=== PATIENT | female | born 1940 | race Caucasian/White ===

== ENCOUNTER → 2016-08-26 | Outpatient (CLI) | payer MEDICARE, OTHER ==
[2015-08-19 16:19] VITALS: BP 148/79
[~2016-08-26] MED LIST: ATOR10TA60 PO; CALC500T27 PO; CYAN10005 PO; DONE10TA7 PO; FLUO40CR9 TP; IBUP100O7 PO; METF500T4 PO; VIT1CAPS12 PO
[2016-08-26 09:12] LABS: CALCIUM 8.7 mg/dL (8.5-10.1); CREATININE 0.8 mg/dL (0.6-1.0); POTASSIUM 4.4 mmol/L (3.5-5.1)
[2016-08-26 09:26] LABS: GFR 69.4
[2016-08-26 22:08] LABS: HEMOGLOBIN A1C 5.7 % (4.8-5.6)
== END | disposition home or self-care (01) ==
LOC: SPEC 08:41
PROVIDERS: ATTEND Specialist
DX: Z00.01 Encounter for general adult medical examination with abnormal findings (principal); Z13.1 Encounter for screening for diabetes mellitus; Z13.6 Encounter for screening for cardiovascular disorders; E11.9 Type 2 diabetes mellitus without complications
CPT/HCPCS: 36415; 80048; 80061; 83036

== ENCOUNTER → 2016-08-26 | Outpatient (CLI) | payer MEDICARE, OTHER ==
[2015-08-19 16:19] VITALS: BP 148/79
--- NOTE | 2016-08-26 11:17 | RAD ---
Bone densitometry scan, 08/26/2016: History: Postmenopausal screening The lumbar spine and right hip were examined utilizing a DEXA technique. The bone mineral density in the lumbar spine as measured from the L1-L4 levels is 0.98 g/sq cm. This yields a T score of -1.7 compatible with osteopenia. The total T score at the right hip is -2.2, also compatible with osteopenia. IMPRESSION: Osteopenia
== END | disposition home or self-care (01) ==
LOC: DXRAD 09:41
PROVIDERS: ATTEND Specialist
DX: Z13.820 Encounter for screening for osteoporosis (principal); M85.88 Other specified disorders of bone density and structure, other site
CPT/HCPCS: 77080

== ENCOUNTER → 2017-02-23 | Outpatient (CLI) | payer MEDICARE, OTHER ==
[2015-08-19 16:19] VITALS: BP 148/79
[~2017-02-23] MED LIST changes: -CALC500T27 PO; +CALC500T30 PO; +IBUP100O24 PO; -IBUP100O7 PO
[2017-02-23 10:51] LABS: CREATININE 0.9 mg/dL (0.6-1.0); GFR 60.6; POTASSIUM 4.8 mmol/L (3.5-5.1)
== END | disposition home or self-care (01) ==
LOC: SPEC 10:18
PROVIDERS: ATTEND Specialist
DX: E11.9 Type 2 diabetes mellitus without complications (principal); E78.5 Hyperlipidemia, unspecified
CPT/HCPCS: 36415; 80048

== ENCOUNTER → 2017-02-24 | Outpatient (CLI) | payer MEDICARE, OTHER ==
[2015-08-19 16:19] VITALS: BP 148/79
[2017-02-25 04:09] LABS: HEMOGLOBIN A1C 6.1 % (4.8-5.6)
== END | disposition home or self-care (01) ==
LOC: SPEC 11:41
PROVIDERS: ATTEND Specialist
DX: E11.9 Type 2 diabetes mellitus without complications (principal)
CPT/HCPCS: 36415; 83036

== ENCOUNTER → 2020-08-28 | Outpatient (CLI) | payer MEDICARE, OTHER ==
[2015-08-19 16:19] VITALS: BP 148/79
[~2020-08-28] MED LIST changes: +CYAN-25 PO; -CYAN10005 PO; -IBUP100O24 PO; +IBUP100O25 PO; +METF500T16 PO; -METF500T4 PO
--- NOTE | 2020-08-28 17:02 | RAD ---
EXAM: 2 views right shoulder DATE: 08/28/2020 2:25 PM INDICATION: Reason: CLOSED FX OF PROXIMAL END OF RIGHT HUMERUS. AP AND Y / Spl. Instructions: / Hist ory: COMPARISON: No Prior FINDINGS: AC joint degenerative changes are seen. Transverse fracture through the surgical neck and base of the greater tuberosity. Mild sclerotic band along the interface. Left glenohumeral joint degenerative ch ovidio. High riding humeral head. IMPRESSION: Proximal humeral fracture as above favored to be subacute/progressively healing given sclerotic sofya ns. Humeral head is high riding suggesting underlying rotator cuff tendinosis or tear. Electronically signed by: Joce Estrada MD (08/28/2020 5:00 PM) [id number]
== END ==
LOC: DXRAD 14:18
PROVIDERS: ATTEND Physician Assistant
DX: S42.201S Unspecified fracture of upper end of right humerus, sequela (principal); M19.011 Primary osteoarthritis, right shoulder; X58.XXXS Exposure to other specified factors, sequela
CPT/HCPCS: 73030

== ENCOUNTER → 2020-09-25 | Outpatient (CLI) | payer MEDICARE, OTHER ==
[2015-08-19 16:19] VITALS: BP 148/79
--- NOTE | 2020-09-26 09:45 | RAD ---
EXAM: XR SHOULDER_RIGHT 2+ VIEWS 09/25/2020 2:12 PM CLINICAL INDICATION: Proximal humerus fracture COMPARISON: Right shoulder radiograph 08/28/2020 TECHNIQUE: 2 views of the right shoulder FINDINGS: The healing right proximal humerus fracture is unchanged in alignment. Fracture lines are slightly less conspicuous. There is some sclerosis along the fracture margins. Alignment is normal. A cromioclavicular degenerative joint disease is redemonstrated. IMPRESSION: Healing right proximal humerus fracture, unchanged in alignment. Electronically signed by: Ladi Vines MD (09/26/2020 9:43 AM) [id number]
== END ==
LOC: RAD 13:58
PROVIDERS: ATTEND Physician Assistant
DX: S42.201A Unspecified fracture of upper end of right humerus, initial encounter for closed fracture (principal); X58.XXXA Exposure to other specified factors, initial encounter; Y93.89 Activity, other specified; Y92.89 Other specified places as the place of occurrence of the external cause; Y99.8 Other external cause status
CPT/HCPCS: 73030

== ENCOUNTER → 2020-11-07 | Outpatient (CLI) | payer MEDICARE, OTHER ==
[2015-08-19 16:19] VITALS: BP 148/79
[~2020-11-07] MED LIST changes: +IBUP-1818 PO; -IBUP100O25 PO
--- NOTE | 2020-11-07 12:18 | RAD ---
EXAM: 2 Views Right Shoulder DATE: 11/07/2020 10:00 AM INDICATION: Reason: FOLLOW UP FRACTURE / Spl. Instructions: / History: COMPARISON: 09/25/2020 FINDINGS: Progressively healing proximal right humeral fracture is stable in alignment. AC joint is congruent. Trace AC joint degenerative change. Humeral head is high riding. IMPRESSION: 1. Progressively healing right proximal humeral fracture in stable alignment. 2. High riding humeral head, rotator cuff tear or tendinosis. Electronically signed by: Joce Estrada MD (11/07/2020 12:15 PM) [email or web address]
== END ==
LOC: RAD 09:52
PROVIDERS: ATTEND Physician Assistant
DX: S42.301A Unspecified fracture of shaft of humerus, right arm, initial encounter for closed fracture (principal); X58.XXXA Exposure to other specified factors, initial encounter; Y93.89 Activity, other specified; Y92.89 Other specified places as the place of occurrence of the external cause; Y99.8 Other external cause status
CPT/HCPCS: 73030